=== PATIENT | female | born 1975 | race Caucasian/White ===

== ENCOUNTER 2021-05-07 13:01 | Emergency (ER) | payer OTHER | END 2021-05-07 14:56 | disposition home or self-care (01) | LOC: ER1 13:01 | DX: J06.9 Acute upper respiratory infection, unspecified (principal); I10 Essential (primary) hypertension; F17.210 Nicotine dependence, cigarettes, uncomplicated; Z79.899 Other long term (current) drug therapy; Z20.822 Contact with and (suspected) exposure to COVID-19 | CPT/HCPCS: 0240U; 87081; 87880; 99283 ==